=== PATIENT | male | born 1990 | race Hispanic/Latino ===

== ENCOUNTER 2019-04-24 22:18 | Inpatient (IN) | payer OTHER ==
[2019-04-24] MEDS ORDERED: FENTANYL CITR 100 MCG/2 ML ONE ×2 (22:41→23:53)
[2019-04-24] MEDS ORDERED: ONDANSETRON 4 MG/2 ML VIAL ONE (22:42)
[2019-04-24] MEDS ORDERED: CEFAZOLIN/SWI 1gm 1 GM/10 ML SYR ONE (22:42)
[2019-04-24 23:04] LABS: Absolute Lymphocytes (CBC) 1.3 K/uL (0.7-4.9); Basophils % 0.6 % (0-1.3); Lymphocytes % 12.2 % (15.3-44.8); MPV 9.8 fL (7.6-11.3); RBC Red Blood Cell Count 4.63 M/uL (4.33-5.43)
[2019-04-24 23:12] LABS: Potassium 3.9 mmol/L (3.5-5.1)
--- NOTE | 2019-04-25 00:09 | EDPHYS ---
Physician Documentation [facility] Name: Mikal Shabazz Age: 29 yrs Sex: Male : 1990 Arrival Date: 04/24/2019 Time: 22:19 Bed 3 Private MD: ED Physician John Gong HPI: 04/24 22:28 This 29 yrs old Male presents to ER via EMS with complaints of Partial amputation of jr8 fingers. 22:28 The patient or guardian reports decreased range of motion, deformity, pain. The jr8 complaints affect the DIP of right middle finger and DIP of right ring finger. Context: The problem was sustained at a Nursing Home, resulted from Getting hand smashed in assisted door. Onset: The symptoms/episode began/occurred acutely, today, at 19:00. Modifying factors: The symptoms are alleviated by nothing, the symptoms are aggravated by movement. Associated signs and symptoms: The patient has no apparent associated signs or symptoms. Severity of symptoms: At their worst the symptoms were moderate, in the emergency department the symptoms are unchanged. The patient has not experienced similar symptoms in the past. The patient has not recently seen a physician. Historical: - Allergies: 22:34 No Known Allergies; jb4 - Home Meds: 22:34 None [Active]; jb4 - PMHx: 22:34 None; jb4 - PSHx: 22:34 None; jb4 - Immunization history: Last tetanus immunization: - up to date. - Social history:: Smoking status: Patient/guardian denies using tobacco, Patient/guardian denies using alcohol. - Ebola Screening: : No symptoms or risks identified at this time. ROS: 22:28 Constitutional: Negative for fever, chills, and weight loss. jr8 22:28 MS/extremity: Positive for decreased range of motion, deformity, laceration, pain, of the right hand. 22:28 All other systems are negative. Exam: 22:28 Head/Face: Normocephalic, atraumatic. Eyes: Pupils equal round and reactive to light, jr8 extra-ocular motions intact. Lids and lashes normal. Conjunctiva and sclera are non-icteric and not injected. Cornea within normal limits. Periorbital areas with no swelling, redness, or edema. ENT: Nares patent. No nasal discharge, no septal abnormalities noted. Tympanic membranes are normal and external auditory canals are clear. Oropharynx with no redness, swelling, or masses, exudates, or evidence of obstruction, uvula midline. Mucous membranes moist. Neck: Trachea midline, no thyromegaly or masses palpated, and no cervical lymphadenopathy. Supple, full range of motion without nuchal rigidity, or vertebral point tenderness. No Meningismus. Cardiovascular: Regular rate and rhythm with a normal S1 and S2. No gallops, murmurs, or rubs. Normal PMI, no JVD. No pulse deficits. Respiratory: Lungs have equal breath sounds bilaterally, clear to auscultation and percussion. No rales, rhonchi or wheezes noted. No increased work of breathing, no retractions or nasal flaring. Abdomen/GI: Soft, non-tender, with normal bowel sounds. No distension or tympany. No guarding or rebound. No evidence of tenderness throughout. Back: No spinal tenderness. No costovertebral tenderness. Full range of motion. Skin: Warm, dry with normal turgor. Normal color with no rashes, no lesions, and no evidence of cellulitis. Neuro: Awake and alert, GCS 15, oriented to person, place, time, and situation. Cranial nerves II-XII grossly intact. Motor strength 5/5 in all extremities. Sensory grossly intact. Cerebellar exam normal. Normal gait. 22:28 Musculoskeletal/extremity: Extremities: grossly normal except: noted in the right hand: Patient has deformity with partial amputation of the DIP portions of the 3rd and 4th digits with decreased ROM secondary to tendon injury. Bleeding controlled. No other hand trauma noted , Sensation intact. Vital Signs: 22:20 BP 122 / 82; Pulse 76; Resp 18; Temp 98.7(O); Pulse Ox 99% on R/A; Weight 68.04 kg (R); jb4 Height 5 ft. 6 in. (167.64 cm); Pain 8/10; 23:15 BP 122 / 67; Pulse 58; Resp 16; Pulse Ox 100% on R/A; Pain 0/10; jb4 1218 00:15 BP 113 / 78; Pulse 69; Resp 18; Pulse Ox 100% on R/A; jb4 01:15 BP 113 / 75; Pulse 56; Resp 16; Pulse Ox 98% on R/A; jb4 01:45 BP 115 / 73; Pulse 55; Resp 16; Pulse Ox 97% on R/A; jb4 04/24 22:20 Body Mass Index 24.21 (68.04 kg, 167.64 cm) jb4 Henri Coma Score: 04/24 22:20 Eye Response: spontaneous(4). Verbal Response: oriented(5). Motor Response: obeys jb4 commands(6). Total: 15. 23:15 Eye Response: spontaneous(4). Verbal Response: oriented(5). Motor Response: obeys jb4 commands(6). Total: 15. 18 00:15 Eye Response: spontaneous(4). Verbal Response: oriented(5). Motor Response: obeys jb4 commands(6). Total: 15. 01:15 Eye Response: spontaneous(4). Verbal Response: oriented(5). Motor Response: obeys jb4 commands(6). Total: 15. 01:45 Eye Response: spontaneous(4). Verbal Response: oriented(5). Motor Response: obeys jb4 commands(6). Total: 15. Trauma Score (Adult): 04/24 22:20 Eye Response: spontaneous(1); Verbal Response: oriented(1); Motor Response: obeys jb4 commands(2); Systolic BP: > 89 mm Hg(4); Respiratory Rate: 10 to 29 per min(4); [place] Score: 15; Trauma Score: 12 23:15 Eye Response: spontaneous(1); Verbal Response: oriented(1); Motor Response: obeys jb4 commands(2); Systolic BP: > 89 mm Hg(4); Respiratory Rate: 10 to 29 per min(4); Henri Score: 15; Trauma Score: 12 1218 00:15 Eye Response: spontaneous(1); Verbal Response: oriented(1); Motor Response: obeys jb4 commands(2); Systolic BP: > 89 mm Hg(4); Respiratory Rate: 10 to 29 per min(4); [place] Score: 15; Trauma Score: 12 01:15 Eye Response: spontaneous(1); Verbal Response: oriented(1); Motor Response: obeys jb4 commands(2); Systolic BP: > 89 mm Hg(4); Respiratory Rate: 10 to 29 per min(4); Henri Score: 15; Trauma Score: 12 01:45 Eye Response: spontaneous(1); Verbal Response: oriented(1); Motor Response: obeys jb4 commands(2); Systolic BP: > 89 mm Hg(4); Respiratory Rate: 10 to 29 per min(4); Henri Score: 15; Trauma Score: 12 MDM: 04/24 22:20 Patient medically screened. [facility] 04/25 00:03 Data reviewed: vital signs, nurses notes, lab test result(s), radiologic studies, plain [facility] films. Data interpreted: Pulse oximetry: on room air is 100 %. Interpretation: normal. Counseling: I had a detailed discussion with the patient and/or guardian regarding: the historical points, exam findings, and any diagnostic results supporting the discharge/admit diagnosis, lab results, radiology results, the need for further work-up and treatment in the hospital. ED course: [facility]. Dr. Harmon called for consult and will see patient and take patient to OR in AM. 04/24 22:20 Order name: CBC with Diff; Complete Time: 23:20 [facility] 04/24 22:20 Order name: Basic Metabolic Panel; Complete Time: 23:20 [facility] 04/24 22:27 Order name: XRAY Hand RIGHT 3 View [facility] 04/25 01:23 Order name: CBC with Automated Diff [facility] 04/25 01:23 Order name: CBC with Automated Diff [facility] 04/25 01:22 Order name: CONS Pharmacy Consult [facility] 04/25 01:22 Order name: CONS Pharmacy Consult [facility] 04/25 01:23 Order name: CONS Pharmacy Consult [facility] 04/25 01:23 Order name: CONS Physician Consult [facility] 04/25 01:23 Order name: NPO [facility] 04/24 22:20 Order name: IV; Complete Time: 22:37 [facility] 04/24 22:21 Order name: Wound dressing; Complete Time: 23:15 jr8 Administered Medications: 04/24 22:52 Drug: Zofran 4 mg Route: IVP; Site: right antecubital; jb4 23:16 Follow up: Response: No adverse reaction jb4 22:54 Drug: fentaNYL (PF) 50 mcg {Note: Rass score 0.} Route: IVP; Site: right antecubital; jb4 23:16 Follow up: Response: No adverse reaction; Pain is decreased; RASS: Alert and Calm (0) jb4 22:55 Drug: Ancef 1 grams {Note: Given IVP per pharmacy protocol.} Route: IVPB; Site: right jb4 antecubital; 23:00 Follow up: Response: No adverse reaction; IV Status: Completed infusion; IV Intake: [id number] 04/25 00:14 Drug: fentaNYL (PF) 50 mcg {Note: Rass score 0.} Route: IVP; Site: right antecubital; jb4 00:45 Follow up: Response: No adverse reaction; Pain is increased; RASS: Alert and Calm (0) jb4 Disposition: 04/25/19 00:08 Hospitalization ordered by Brennon Burgos for Observation. 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 - Bed requested for Telemetry/MedSurg (observation). - Status is Observation. jb4 - Condition is Stable. - Problem is new. - Symptoms have improved. UTI on Admission? No Addendum: 04/26/2019 06:22 Co-signature as Attending Physician, John Gong MD I agree with the assessment and t w4 plan of care. Signatures: Dispatcher [employer] EDMS Rubin Diaz PA PA jr8 Brenda Trejo RN RN cg Bryson, James, RN RN jb4 John Gong MD MD tw4 Corrections: (The following items were deleted from the chart) 04/25 01:27 00:08 Hospitalization Ordered by Brennon Burgos MD for Observation. 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 Bed requested for Telemetry/MedSurg (observation). Status is Observation. Condition is Stable. Problem is new. Symptoms have improved. UTI on Admission? No. jr8 02:01 01:27 04/25/2019 00:08 Hospitalization Ordered by Brennon Burgos MD for Observation. 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 Bed requested for Telemetry/MedSurg (observation). Status is Observation. Condition is Stable. Problem is new. Symptoms have improved. UTI on Admission? No. cg
--- NOTE | 2019-04-25 00:09 | ER ---
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 Care prior to arrival: Medication(s) given: Tylenol, 1000 mg, IV initiated. 20 GA, in the right antecubital area. Mechanism of Injury: Crush injury from [facility]irement cell door. Trauma event details: Injury occurred in the [facility]. 22:20 Acuity: HUI 2 jb4 22:20 Method Of Arrival: EMS: [facility] jb4 22:20 Transition of care: patient was not received from another setting of care. Onset of jb4 symptoms was April 24, 2019. Risk Assessment: Do you want to hurt yourself or someone else? Patient reports no desire to harm self or others. Initial Sepsis Screen: Does the patient meet any 2 criteria? No. Patient's initial sepsis screen is negative. Does the patient have a suspected source of infection? Yes: Skin breakdown/wound. Trauma Activation: Alert Physician: ED Physician; Name: Joe; Notified At: 22:20; Arrived At: 22:20 Physician: General Surgeon; Name: ; Notified At: 22:20; Arrived At: Physician: Radiology; Name: Debra; Notified At: 22:20; Arrived At: 22:20 Physician: Respiratory; Name: ; Notified At: 22:20; Arrived At: Physician: Lab; Name: ; Notified At: 22:20; Arrived At: Historical: - Allergies: 22:34 No Known Allergies; jb4 - Home Meds: 22:34 None [Active]; jb4 - PMHx: 22:34 None; jb4 - PSHx: 22:34 None; jb4 - Immunization history: Last tetanus immunization: - up to date. - Social history:: Smoking status: Patient/guardian denies using tobacco, Patient/guardian denies using alcohol. - Ebola Screening: : No symptoms or risks identified at this time. Screenin:20 Abuse screen: Denies threats or abuse. Nutritional screening: No deficits noted. jb4 Tuberculosis screening: No symptoms or risk factors identified. Fall risk None identified. 22:20 Fall Risk None identified. jb4 Primary Survey: 22:20 NO uncontrolled hemorrhage observed. A: The patient is alert. Airway: patent, No jb4 supplemental oxygen in use on arrival. Oral cavity: clear, Trachea midline. Breathing/Chest: Respiratory pattern: regular, Respiratory effort: spontaneous, unlabored, Chest inspection: symmetrical rise and fall of the chest. Circulation: Skin color: pink, Skin temperature: warm, dry. Disability Alert. Exposure/Environment: There is no evidence of uncontrolled external bleeding. Obvious injury(ies) are noted at this time: Crush injury noted to the 2nd and 3rd right fingers. 23:30 Reassessment Airway Airway Patent Oxygen No O2 Breathing/Chest Respiratory pattern jb4 Regular Respiratory effort Spontaneous Unlabored Circulation Color [place] Temperature Warm Dry Disability Alert. Secondary Survey: 22:20 HEENT: No deficits noted. Gastrointestinal: No deficits noted. : No deficits noted. jb4 Musculoskeletal: Circulation, motion, and sensation intact. Range of motion: limited in DIP of right middle finger and DIP of right ring finger. Injury Description: Crush injury sustained to dorsal aspect of distal phalanx of right middle finger and dorsal aspect of distal phalanx of right ring finger was sustained 2-4 hours ago. Laceration sustained to dorsal aspect of distal phalanx of right middle finger, dorsal aspect of distal phalanx of right ring finger, palmar aspect of distal phalanx of right ring finger and palmar aspect of distal phalanx of right middle finger is bleeding moderately. Assessment: 22:20 General: Appears in no apparent distress. uncomfortable, Behavior is calm, cooperative, jb4 appropriate for age. Pain: Complains of pain in dorsal aspect of distal phalanx of right middle finger, dorsal aspect of distal phalanx of right ring finger, palmar aspect of distal phalanx of right ring finger and palmar aspect of distal phalanx of right middle finger Pain does not radiate. Pain currently is 8 out of 10 on a pain scale. Neuro: Level of Consciousness is awake, alert, obeys commands, Oriented to person, place, time, situation. Cardiovascular: Patient's skin is warm and dry. Respiratory: Airway is patent Respiratory effort is even, unlabored, Respiratory pattern is regular, symmetrical. GI: No signs and/or symptoms were reported involving the gastrointestinal system. : No signs and/or symptoms were reported regarding the genitourinary system. EENT: No signs and/or symptoms were reported regarding the EENT system. Derm: Skin is pink, warm \T\ dry. Musculoskeletal: Circulation, motion, and sensation intact. Range of motion: limited in DIP of right middle finger and DIP of right ring finger. Injury Description: Crush injury sustained to dorsal aspect of distal phalanx of right middle finger, dorsal aspect of distal phalanx of right ring finger, palmar aspect of distal phalanx of right ring finger and palmar aspect of distal phalanx of right middle finger Laceration sustained to dorsal aspect of distal phalanx of right middle finger, dorsal aspect of distal phalanx of right ring finger, palmar aspect of distal phalanx of right ring finger and palmar aspect of distal phalanx of right middle finger. 23:15 Reassessment: Patient appears in no apparent distress at this time. Patient and/or jb4 family updated on plan of care and expected duration. Pain level reassessed. Patient is alert, oriented x 3, equal unlabored respirations, skin warm/dry/pink. Patient denies pain at this time. Patient states feeling better. 04/25 00:15 Reassessment: Patient appears in no apparent distress at this time. Patient and/or jb4 family updated on plan of care and expected duration. Pain level reassessed. Patient is alert, oriented x 3, equal unlabored respirations, skin warm/dry/pink. Provider updated patient on plan of care. Pt instructed to remain NPO. 01:15 Reassessment: Patient appears in no apparent distress at this time. Patient and/or jb4 family updated on plan of care and expected duration. Pain level reassessed. Patient is alert, oriented x 3, equal unlabored respirations, skin warm/dry/pink. 01:54 Reassessment: Patient appears in no apparent distress at this time. Patient and/or jb4 family updated on plan of care and expected duration. Pain level reassessed. Patient is alert, oriented x 3, equal unlabored respirations, skin warm/dry/pink. PT transferred upstairs via stretcher, guards at the bedside. Vital Signs: 04/24 22:20 BP 122 / 82; Pulse 76; Resp 18; Temp 98.7(O); Pulse Ox 99% on R/A; Weight 68.04 kg (R); jb4 Height 5 ft. 6 in. (167.64 cm); Pain 8/10; 23:15 BP 122 / 67; Pulse 58; Resp 16; Pulse Ox 100% on R/A; Pain 0/10; jb4 04/25 00:15 BP 113 / 78; Pulse 69; Resp 18; Pulse Ox 100% on R/A; jb4 01:15 BP 113 / 75; Pulse 56; Resp 16; Pulse Ox 98% on R/A; jb4 01:45 BP 115 / 73; Pulse 55; Resp 16; Pulse Ox 97% on R/A; jb4 04/24 22:20 Body Mass Index 24.21 (68.04 kg, 167.64 cm) jb4 [place] Coma Score: 04/24 22:20 Eye Response: spontaneous(4). Verbal Response: oriented(5). Motor Response: obeys jb4 commands(6). Total: 15. 23:15 Eye Response: spontaneous(4). Verbal Response: oriented(5). Motor Response: obeys jb4 commands(6). Total: 15. 04/25 00:15 Eye Response: spontaneous(4). Verbal Response: oriented(5). Motor Response: obeys jb4 commands(6). Total: 15. 01:15 Eye Response: spontaneous(4). Verbal Response: oriented(5). Motor Response: obeys jb4 commands(6). Total: 15. 01:45 Eye Response: spontaneous(4). Verbal Response: oriented(5). Motor Response: obeys jb4 commands(6). Total: 15. Trauma Score (Adult): 04/24 22:20 Eye Response: spontaneous(1); Verbal Response: oriented(1); Motor Response: obeys jb4 commands(2); Systolic BP: > 89 mm Hg(4); Respiratory Rate: 10 to 29 per min(4); [place] Score: 15; Trauma Score: 12 23:15 Eye Response: spontaneous(1); Verbal Response: oriented(1); Motor Response: obeys jb4 commands(2); Systolic BP: > 89 mm Hg(4); Respiratory Rate: 10 to 29 per min(4); Henri Score: 15; Trauma Score: 12 04/25 00:15 Eye Response: spontaneous(1); Verbal Response: oriented(1); Motor Response: obeys jb4 commands(2); Systolic BP: > 89 mm Hg(4); Respiratory Rate: 10 to 29 per min(4); [place] Score: 15; Trauma Score: 12 01:15 Eye Response: spontaneous(1); Verbal Response: oriented(1); Motor Response: obeys jb4 commands(2); Systolic BP: > 89 mm Hg(4); Respiratory Rate: 10 to 29 per min(4); [place] Score: 15; Trauma Score: 12 01:45 Eye Response: spontaneous(1); Verbal Response: oriented(1); Motor Response: obeys jb4 commands(2); Systolic BP: > 89 mm Hg(4); Respiratory Rate: 10 to 29 per min(4); Henri Score: 15; Trauma Score: 12 ED Course: 04/24 22:19 Patient arrived in ED. jb4 22:20 Rubin Diaz PA is PHCP. jr8 22:20 John Gong MD is Attending Physician. jr8 22:20 Patient has correct armband on for positive identification. Bed in low position. Call jb4 light in reach. Side rails up X 1. Patient maintains SpO2 saturation greater than 95% on room air. 22:20 Pulse ox on. NIBP on. jb4 22:20 Patient maintains SpO2 saturation greater than 95% on room air. jb4 22:20 Maintain EMS IV. Dressing intact. Site clean \T\ dry. Gauge \T\ site: 20g RAC. eddie 4 22:25 Triage completed. jb4 22:34 Arm band placed on right wrist. jb4 22:36 XRAY Hand RIGHT 3 View In Process Unspecified. EDMS 22:37 Fidencio Mcdonald, DENISE is Primary Nurse. jb4 04/25 00:06 Brennon Burgos MD is Hospitalizing Provider. jr8 01:00 Thermoregulation: warm blanket given to patient. jb4 01:45 No provider procedures requiring assistance completed. Patient admitted, IV remains in jb4 place. Administered Medications: 04/24 22:52 Drug: Zofran 4 mg Route: IVP; Site: right antecubital; jb4 23:16 Follow up: Response: No adverse reaction jb4 22:54 Drug: fentaNYL (PF) 50 mcg {Note: Rass score 0.} Route: IVP; Site: right antecubital; jb4 23:16 Follow up: Response: No adverse reaction; Pain is decreased; RASS: Alert and Calm (0) jb4 22:55 Drug: Ancef 1 grams {Note: Given IVP per pharmacy protocol.} Route: IVPB; Site: right jb4 antecubital; 23:00 Follow up: Response: No adverse reaction; IV Status: Completed infusion; IV Intake: [id number] 04/25 00:14 Drug: fentaNYL (PF) 50 mcg {Note: Rass score 0.} Route: IVP; Site: right antecubital; jb4 00:45 Follow up: Response: No adverse reaction; Pain is increased; RASS: Alert and Calm (0) [facility] Intake: 04/24 22:20 PO: 0ml; Total: 0ml. 4 23:00 IV: 10ml; Total: 10ml. 4 Outcome: 04/25 00:08 Decision to Hospitalize by Provider. jr8 01:59 Admitted to Tele accompanied by tech, via stretcher, with chart, Report called to jb DENISE Gunderson 01:59 Condition: stable 01:59 Discharge instructions given to patient, [facility] guards. Instructed on the need for admit, Demonstrated understanding of instructions. 02:00 Patient's length of stay in the Emergency Department was greater than 2 hours. Patient jb4 admitted.Patient's length of stay extended due to 02:01 Patient left the ED. 4 Signatures: Dispatcher [employer] EDMS Rubin Diaz PA PA jr8 Fidencio Mcdonald, DENISE RN jb4
[2019-04-25] MEDS ORDERED: ONDANSETRON 4 MG/2 ML VIAL IV PRN (01:14)
[2019-04-25] MEDS ORDERED: MORPHINE 4 MG/ML SYR IV PRN (01:14)
[2019-04-25] MEDS ORDERED: ACETAMINOPHEN 500 MG TAB PO PRN (01:14)
[2019-04-25] MEDS ORDERED: NA CHLORIDE 0.9% 1,000 ML IV SCH (02:00)
[2019-04-25 02:14] VITALS: BMI 23.0
[2019-04-25] MEDS ORDERED: VANCOMYCIN 1 GM/VIAL ONE (02:21)
[2019-04-25] MEDS ORDERED: NA CHLORIDE 0.9% 250 ML ONE (02:21)
[2019-04-25] MEDS ORDERED: VANCOMYCIN 500 MG/VIAL ONE (02:30)
[2019-04-25] MEDS: VANCOMYCIN 1.25 GM in NA CHLORIDE 0.9% 250 ML IV SCH ×2 (02:35→15:30)
[2019-04-25] MEDS ORDERED: PIPERACIL/TAZO 3.375 GM VIAL IV ONE (02:39)
[2019-04-25 04:39] LABS: Urine Appearance CLEAR; Urine Bilirubin NEGATIVE (NEG); Urine Blood NEGATIVE (NEG); Urine Color YELLOW; Urine Glucose NEGATIVE (NEG); Urine Protein NEGATIVE (NEG); Urine Urobilinogen 0.2 mg/dL (0.2-1.0)
[2019-04-25 04:55] LABS: Urine Bacteria <20 /HPF (NONE SEEN); Urine Culture Reflex Order NOT NEEDED; Urine RBC <5 /HPF (NONE SEEN)
[2019-04-25] MEDS ORDERED: NA CHLORIDE 0.9% 100 ML IV ONE (05:16)
[2019-04-25] MEDS ORDERED: PIPER/TAZO/NS 3.375gm 3.375 GM/100 ML BAG IVPB SCH (06:00)
--- NOTE | 2019-04-25 07:49 | P.HP ---
Certification for Inpatient Patient admitted to: Inpatient With expected LOS: >2 Midnights Patient will require the following post-hospital care: None Practitioner: I am a practitioner with admitting privileges, knowledge of patient current condition, hospital course, and medical plan of care. Services: Services provided to patient in accordance with Admission requirements found in Title 42 Section 412.3 of the Code of Federal Regulations Patient History Date of Service: 04/25/19 Reason for admission: Partial traumatic transphalangeal amp. of right ring& middle digit History of Present Illness: Patient is a 29-year-old gentleman who had an injury while in [facility]. Patient was getting is cell closed when his hand got caught and crushed as the care home was closing. Patient was brought into our hospital for evaluation. Patient has a partial transphalangeal amputation of right ring finger & middle finger, and patient also has a displaced fracture of distal phalanx of right ring finger - open fracture. Patient will be admitted to the hospital and will be consulted by Hand surgery. Patient with no significant medical issues. Will continue with IV antibiotic therapy. Also continue with pain control. Allergies No Known Allergies Allergy (Unverified 04/25/19 02:05) Home Medications: NK [No Home Meds] 04/25/19 - Past Medical/Surgical History Has patient received pneumonia vaccine in the past: No Diabetic: No Past Medical History: Patient denies medical history Past Surgical History: Patient denies surgical history - Family History Father Family History: Reviewed- Non-Contributory - Social History Smoking Status: Current some day smoker Alcohol use: No CD- Drugs: No Caffeine use: No Review of Systems 10-point ROS is otherwise unremarkable Physical Examination - Vital Signs Temperature: 97.1 F Blood Pressure: 109/62 Pulse: 55 Respirations: 18 Pulse Ox (%): 98 - Physical Exam General: Alert, In no apparent distress, Oriented x3 HEENT: Atraumatic, PERRLA, Mucous membr. moist/pink, EOMI, Sclerae nonicteric Neck: Supple, 2+ carotid pulse no bruit, No LAD, Without JVD or thyroid abnormality Respiratory: Clear to auscultation bilaterally, Normal air movement Cardiovascular: Regular rate/rhythm, Normal S1 S2, No murmurs Gastrointestinal: Normal bowel sounds, Soft and benign, Non-distended, No tenderness Musculoskeletal: No clubbing, Tenderness, Other (Open wound to the ring and middle finger) Integumentary: No rashes Neurological: Normal gait, Normal speech, Normal strength at 5/5 x4 extr, Normal tone, Cranial nerves 3-12 intact, Normal reflexes 2+, Abnormal sensation (Diminished) Lymphatics: No axilla or inguinal lymphadenopathy - Studies Laboratory Data (last 24 hrs) 04/24/19 22:41: Sodium 139, Potassium 3.9, BUN 12, Creatinine 1.03, Glucose 100 04/24/19 22:41: WBC 10.3, Hgb 14.2, Hct 41.0, Plt Count 172 Assessment & Plan - Problems (Diagnosis) (1) 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 Continue with IV antibiotic 2. Continue with local wound care 3. Hand surgical consultation 4. Gentle IV hydration 5. Monitor CBC 6. Strict blood sugar monitoring 7. Pain control 8. GI and DVT prophylaxis Discharge Plan: Home Plan to discharge in: Greater than 2 days - Advance Directives Does patient have a Living Will: No Does patient have a Durable POA for Healthcare: No - Code Status/Comfort Care Code Status Assessed: Yes Code Status: Full Code Critical Care: No Time Spent Managing PTS Care (In Minutes): 45
[2019-04-25] MEDS ORDERED: MORPHINE 4 MG/ML SYR IV ONE (07:50)
--- NOTE | 2019-04-25 08:09 | RAD REPORT ---
EXAM DESCRIPTION: RAD - Hand Right 3 View - 04/24/2019 10:36 pm CLINICAL HISTORY: amputation Pain and swelling COMPARISON: No comparisons FINDINGS: Fracture seen along the base of the distal phalanx of the fourth finger with mallet finger deformity. Tiny avulsion is also seen along the base of the distal phalanx of the third finger with mallet finger seen.
[2019-04-25] MEDS: PIPER/TAZO/NS 3.375gm 3.375 GM/100 ML BAG IVPB SCH ×2 (08:40→17:07)
[2019-04-25] MEDS ORDERED: Ringers Lactate 1,000 ML IV ONE (11:21)
[2019-04-25] MEDS ORDERED: FENTANYL CITR 100 MCG/2 ML ONE (11:40)
[2019-04-25] MEDS ORDERED: propofoL 200 MG/20 ML VIAL IV ONE (11:40)
[2019-04-25] MEDS ORDERED: MIDAZOLAM HCL 2 MG/2 ML INJ ONE (11:41)
[2019-04-25] MEDS ORDERED: LIDOCAINE 2% MPF 5 ML VIAL ONE (11:41)
[2019-04-25] MEDS ORDERED: MEPERIDINE HCL 25 MG/0.5 ML ONE (13:38)
[2019-04-25] MEDS ORDERED: CODEINE 30MG/APAP 300MG TAB PO PRN (13:40)
--- NOTE | 2019-04-25 13:46 | RAD REPORT ---
EXAM DESCRIPTION: RAD - Hand Right 3 View - 04/25/2019 1:32 pm CLINICAL HISTORY: RT HAND PINNING IN OR 3 COMPARISON: Hand Right 3 View dated 04/24/2019 FINDINGS: Fluoroscopy time 0.4 minutes.
[2019-04-25] MEDS ORDERED: ONDANSETRON 4 MG/2 ML VIAL ONE (14:05)
[2019-04-25] MEDS: HYDROMORPHONE HCL 1 MG/ML INJ ONE ×2 (14:06→14:14)
[2019-04-25] MEDS ORDERED: KETOROLAC 30 MG/ML INJ ONE (14:07)
--- NOTE | 2019-04-25 14:17 | P.PN ---
Date of Service: 04/25/19 Patient seen and examined. He has no complain. He denies pain. Case discussed with Dr. Harmon. Patient for examination in OR. Continue current antibiotics Pain management as needed. Wound care.
[2019-04-25] MEDS: HYDROMORPHONE HCL 2 MG/ML inj ONE ×4 (14:19→14:34)
[2019-04-25 14:40] VITALS: O2SAT 99
[2019-04-25] MEDS ORDERED: NA CHLORIDE 0.9% 1,000 ML ONE (14:47)
[2019-04-25 16:27] VITALS: BP 124/87; TEMP 98.2
--- NOTE | 2019-04-25 17:58 | P.SSS ---
Patient History Date of Service: 04/25/19 Reason for admission: Partial traumatic transphalangeal amp. of right ring& middle digit History of Present Illness: 29-year-old gentleman had a hand injury at [facility]. He reported the cell door crushing his hand while it was closing. Patient sustained a crush injury to the right ring and middle finger, and mallet finger of the right ring finger. Dr. Harmon-hand surgeon was informed and patient admitted to be evaluated by him. Allergies No Known Allergies Allergy (Unverified 04/25/19 02:05) Home Medications: Cephalexin [Keflex] 500 mg PO Q6HR #28 cap 04/25/19 Codeine/APAP [Tylenol #3*] 1 tab PO Q4H PRN #30 tab 04/25/19 - Past Medical/Surgical History Has patient received pneumonia vaccine in the past: No Diabetic: No -: None - Social History Smoking Status: Current some day smoker Alcohol use: No CD- Drugs: No Caffeine use: No Review of Systems 10-point ROS is otherwise unremarkable Physical Examination - Vital Signs Temperature: 98.2 F Blood Pressure: 124/87 Pulse: 68 Respirations: 16 Pulse Ox (%): 99 - Physical Exam General: Alert, In no apparent distress, Oriented x3 HEENT: Atraumatic, Mucous membr. moist/pink Neck: Supple, JVD not distended Respiratory: Clear to auscultation bilaterally, Normal air movement Cardiovascular: Regular rate/rhythm, Normal S1 S2 Gastrointestinal: Soft and benign, No tenderness Neurological: Normal speech - Studies Laboratory Data (last 24 hrs) 04/24/19 22:41: Sodium 139, Potassium 3.9, BUN 12, Creatinine 1.03, Glucose 100 04/24/19 22:41: WBC 10.3, Hgb 14.2, Hct 41.0, Plt Count 172 Treatment Summary: Patient admitted to the medical and started on IV antibiotic. She was seen and evaluated by Dr. Harmon and patient sent to the OR. Pin fixation of the right ring and middle fingers, tendon repair of the right ring and middle fingers were done. Dr. Harmon recommended discharged with oral Keflex and follow up in his office next week. He is also precribed Tylenol no. [address] Harmon's recommendation. - Disposition Disposition: ROUTINE DISCHARGE Condition: FAIR Diet: Regular Activity: Ad hung
[2019-04-25] MEDS ORDERED: PROMETHAZINE INJ 25 MG/ML AMP IV ONE (18:45)
[2019-04-25] MEDS ORDERED: PROMETHAZINE INJ 25 MG/ML AMP IM ONE (18:50)
--- NOTE | 2019-04-26 00:34 | OP ---
Surgeon: Ton Harmon MD Preoperative Diagnosis: Open fracture of the left ring finger distal phalanx open joint of the DIP o f the middle and ring. Postoperative Diagnosis: Open fracture of the left ring finger distal phalanx open joint of the DIP of the middle and ring with extension laceration. Procedure Performed: Debridement of skin and subcutaneous tissue. K-wire arthrodesis of the middle and ring. ORIF of the ring, extensor tendon repair and middle and ring simple closure of 2 cm of the ring, 3 cm of the middle, and splint. Anesthesia: General. Procedure In Detail: After satisfactory induction of general anesthesia, right hand was prepped with Betadine scrub, Betadine paint, dry sterile drapes applied in the usual manner. The arm was elevate d, exsanguinated with Esmarch. Tourniquet was inflated to 250 mmHg. Scalp was used to debride skin and subcutaneous tissue over dorsum of the middle and ring fingers. The patient had open joint to zoraida th with fracture of the ring, distal phalanx. After jet lavage, care was placed from proximal to dis taras, then from distal to proximal reducing the fracture and arthrodesing the DIP joints of both of th e ring finger and arthrodesing the DIP of the middle and C-arm guidance was used. After this was don e, then the patient underwent tenodermodesis. Horizontal mattress were taken through tendon, skin, a nd then tied to themselves. This was done on both the ring and the middle finger. Simple sutures we re placed as needed on either side of those and then the wires were cut and bent after C-arm revealed adequate reduction. Tourniquet was released, dressed with Xeroform, 2-inch Donnie, Kerlix, and a spl int to hold the wrist in 10 degrees of dorsiflexion. MCP 90, PIP and DIP 0. Patient tolerated the procedure well and returned to Recovery. GABRIEL/MAT Voice ID: [id number] Report ID: [id number]
--- NOTE | 2019-04-26 01:05 | HP ---
Date of Admission: 04/25/2019 History Of Present Illness: A 29-year-old male, right-hand dominant, who crushed his right hand . Past Medical And Surgical History: He has no medical problems. No surgery. Social History: Does smoke, does drink. Medications: None. Allergies: NONE. Physical Examination: Vital Signs:150 pounds. Extremities: He has open wounds to the middle and ring DIP. Imaging: X-ray shows fracture of the ring finger distal phalanx Assessment: Fracture of the right ring finger and extensor laceration ring and middle. Plan: ORIF. GABRIEL/MAT Voice ID: [id number] [facility]
== END 2019-04-25 19:00 | disposition home or self-care (01) | DRG 513 ==
LOC: ER 22:18 → ERHOLD 04-25 01:15 → 4TH 04-25 01:44
PROVIDERS: ADMIT Hospitalist; ATTEND Internal Medicine
PROC: 0PST04Z Reposition Right Finger Phalanx with Internal Fixation Device, Open Approach (ICD-10-PCS; 2019-04-25)
PROC: 0LQ70ZZ Repair Right Hand Tendon, Open Approach (ICD-10-PCS; 2019-04-25)
PROC: 0PST04Z Reposition Right Finger Phalanx with Internal Fixation Device, Open Approach (ICD-10-PCS; principal; 2019-04-25 12:00)
DX: S62.632B Displaced fracture of distal phalanx of right middle finger, initial encounter for open fracture (principal); S56.423A Laceration of extensor muscle, fascia and tendon of right middle finger at forearm level, initial encounter; S62.634B Displaced fracture of distal phalanx of right ring finger, initial encounter for open fracture; X58.XXXA Exposure to other specified factors, initial encounter; Y92.143 Cell of prison as the place of occurrence of the external cause
CPT/HCPCS: 36415; 80048; 81001; 85025; 96374; 96375; 99285; J0690; J1170; J2175; J2250; J2405; J2543; J2550; J2704; J3010; J7030; J7120